=== PATIENT | female | born 1940 | race Caucasian/White ===

== ENCOUNTER 2017-04-08 19:16 | Emergency (ER) | payer MEDICARE, OTHER ==
[~2017-04-08] VITALS: Ht 160 cm; Wt 69.5 kg
[~2017-04-08 19:16] MED LIST: ALLOPURINOL100 MG PO; FOLIC ACID1 MG PO; MECLIZINE25 M1 PO; NOLVADEX20 MG PO; NORCO 325 MG-51 TAB PO; NORVASC 10MG10 MG PO; PERCOCET 325 MG1 TA2 PO; PREDNISONE1 MG PO; PRILOSEC 20MG20 MG PO; PRINIVIL5 MG; QUINAPRIL HCL40 MG PO; SULFAMETH/TRIME1 TA1 PO; ULTRAM 50MG TAB50 MG PO; ULTRAM50 MG PO; ZYLOPRIM300 MG PO
[2017-04-08 19:18] VITALS: TEMP 98.7
[2017-04-08 20:48] LABS: BASO % 0.6 % (0.0-2.0); EOS % 0.6 % (0-4.0); GRAN # 4.3 (1.4-6.5); GRAN % 59.9 % (42.2-75.2); LYMPH % 28.1 % (20.0-51.0); MEAN CELL VOLUME 80 fl (80.0-100.0); MEAN CORPUSCULAR HGB CONC 32 g/dl (33.0-37.0); MEAN PLATELET VOLUME 8.6 fl (7.4-10.4); MONO # 0.7 (0.1-0.6); MONO % 10.2 % (1.7-9.3); PLATELET COUNT 314 K/mm3 (130-400); RED BLOOD COUNT 3.86 M/mm3 (4.10-5.30); REDCELL DISTRIBUTION WIDTH-CV 15.3 % (11.5-14.5); WHITE BLOOD COUNT 7.2 K/mm3 (4.8-10.8)
[2017-04-08 20:49] LABS: HEMATOCRIT 30.7 % (37.0-47.0); HEMOGLOBIN 9.9 g/dl (12.5-16.0); MEAN CORPUSCULAR HEMOGLOBIN 26 pg (27.0-31.0)
[2017-04-08 21:06] LABS: ADJUSTED CALCIUM 9.6 mg/dL (8.4-10.2); ALANINE AMINOTRANSFERASE 22 U/L (9-52); ALBUMIN 3.7 gm/dL (3.5-5.0); ALKALINE PHOSPHATASE 75 U/L (50-136); ANION GAP 11 mmol/L (7-16); BILIRUBIN,TOTAL 0.9 mg/dL (0.0-1.0); BLOOD UREA NITROGEN 16 mg/dL (7-17); C-REACTIVE PROTEIN 0.8 mg/dL (0.0-0.9); CALCIUM 9.4 mg/dL (8.4-10.2); CARBON DIOXIDE 23 mmol/L (22-30); CHLORIDE 102 mmol/L (98-107); CREATININE, serum 1.35 mg/dL (0.52-1.25); GLUCOSE 122 mg/dL (74-106); MAGNESIUM 2.1 mg/dL (1.6-2.3); POTASSIUM 4.3 mmol/L (3.4-5.0); SODIUM 135 mmol/L (137-145); TOTAL PROTEIN 7.2 gm/dL (6.4-8.2)
[2017-04-08 21:23] LABS: TROPONIN-I < 0.012 ng/mL (0.000-0.034)
[2017-04-08] MEDS ORDERED: ZOFRAN 4MG T4 MG/TAB PO (22:16)
[2017-04-08] MEDS ORDERED: ATIVAN 0.50.5 MG/TAB PO (22:16)
[2017-04-08] MEDS ORDERED: AMOXICILLIN 50500 MG PO (22:16)
[2017-04-08] MEDS ORDERED: TOPROL XL 50MG50 MG PO (22:16)
[2017-04-08 23:00] VITALS: BP 157/88; PULSE 76
[2017-04-08 23:56] LABS: PH 6 (5-8); SQUAMOUS EPITHELIAL 0-2 /hpf; URINE APPEARANCE Clear; URINE BACTERIA None Seen /hpf; URINE BILIRUBIN Negative (NEGATIVE); URINE BLOOD Negative (NEGATIVE); URINE COLOR Yellow; URINE GLUCOSE Negative (NEGATIVE); URINE KETONE Negative (NEGATIVE); URINE UROBILINOGEN Negative (NEGATIVE); URINE WBC >50 /hpf
== END 2017-04-08 23:37 | disposition home or self-care (01) ==
LOC: COL.ER 19:16
PROVIDERS: Emergency Medicine
DX: R42 Dizziness and giddiness (principal); I10 Essential (primary) hypertension; J32.9 Chronic sinusitis, unspecified; Z85.3 Personal history of malignant neoplasm of breast; R11.2 Nausea with vomiting, unspecified
CPT/HCPCS: J2060; J2405; J7030

== ENCOUNTER → 2017-08-29 | Outpatient (CLI) | payer MEDICARE, OTHER ==
[~2017-08-29] MED LIST changes: +ALMACONE 360 M360 ML PO; +AMOXICILLIN 50500 MG PO; +AMOXICILLIN 8751 TAB PO; +ASPIRIN 81M81 MG/TA2 PO; +ATIVAN 0.50.5 MG/TAB PO; +BOOST PLUS 240240 ML PO; +CORDARONE200 MG/TAB PO; +IMODIUM 2MG CAPS2 MG PO; +MILK OF MA400 MG/52 PO; +SODIUM BICARBO650 MG PO; +TOPROL XL 50MG50 MG PO; +TYLENOL 325MG325 MG PO; -ULTRAM50 MG PO; +ZOFRAN 4MG T4 MG/TAB PO
== END ==
LOC: COL.RAD 08:33
DX: Z01.818 Encounter for other preprocedural examination (principal); K57.30 Diverticulosis of large intestine without perforation or abscess without bleeding; K57.80 Diverticulitis of intestine, part unspecified, with perforation and abscess without bleeding; Z93.2 Ileostomy status

== ENCOUNTER 2018-05-29 14:00 | Outpatient (RCR) | payer MEDICARE, OTHER, MEDICAID ==
[2018-05-20 14:22] VITALS: BP 134/63; PULSE 84; TEMP 98.1
[2018-05-23 13:15] VITALS: BP 130/62; PULSE 80; TEMP 98.4
[2018-05-26 13:15] VITALS: BP 132/61; PULSE 80; TEMP 97.5
[~2018-05-29] VITALS: Ht 160 cm; Wt 70.0 kg
[~2018-05-29 14:00] MED LIST changes: +NAPROSYN500 MG PO
[2018-05-29 14:31] VITALS: BP 120/59; PULSE 82; TEMP 98.6
== END 2018-05-29 17:30 | disposition home or self-care (01) ==
LOC: EUO 14:00
DX: D50.9 Iron deficiency anemia, unspecified (principal)
CPT/HCPCS: J2916

== ENCOUNTER 2018-06-16 06:45 | Day surgery (SDC) | payer MEDICARE, OTHER, MEDICAID ==
[~2018-06-16] VITALS: Ht 160 cm; Wt 67.8 kg
[~2018-06-16 06:45] MED LIST changes: -TYLENOL 325MG325 MG PO; +TYLENOL 8 HR PO
[2018-06-16] MEDS ORDERED: ANTIVERT 25MG25 MG PO (07:11)
[2018-06-16] MEDS ORDERED: PROTONIX 40MG T40 MG PO (09:01)
[2018-06-16 09:05] VITALS: BP 144/74; PULSE 89; TEMP 97.5
[2018-06-16 09:20] VITALS: BP 146/71; PULSE 79
[2018-06-16 09:35] VITALS: BP 146/76; PULSE 77
[2018-06-16 09:50] VITALS: BP 151/83; PULSE 73
[2018-06-16 10:05] VITALS: BP 145/87; PULSE 72
[2018-06-16 10:32] VITALS: BP 162/71; PULSE 78; TEMP 98.5
== END 2018-06-16 10:20 | disposition home or self-care (01) ==
LOC: SDCO 06:45
DX: K57.30 Diverticulosis of large intestine without perforation or abscess without bleeding (principal); K64.0 First degree hemorrhoids; K63.89 Other specified diseases of intestine; D50.9 Iron deficiency anemia, unspecified; R19.7 Diarrhea, unspecified; K21.0 Gastro-esophageal reflux disease with esophagitis; K44.9 Diaphragmatic hernia without obstruction or gangrene; K29.30 Chronic superficial gastritis without bleeding; M19.90 Unspecified osteoarthritis, unspecified site; I10 Essential (primary) hypertension; Z86.010 Personal history of colon polyps
CPT/HCPCS: OP; J2704; J7120

== ENCOUNTER 2021-04-04 17:55 | Emergency (ER) | payer MEDICARE, OTHER, MEDICAID ==
[~2021-04-04] VITALS: Ht 157.5 cm; Wt 50.0 kg
[~2021-04-04 17:55] MED LIST changes: +ANTIVERT 25MG25 MG PO; +PROTONIX 40MG T40 MG PO
[2021-04-04 18:02] VITALS: TEMP 98.2
[2021-04-04 18:22] LABS: HEMATOCRIT 39.4 % (37.0-47.0); HEMOGLOBIN 12.1 g/dl (12.5-16.0); MEAN CELL VOLUME 80 fl (80.0-100.0); MEAN CORPUSCULAR HEMOGLOBIN 25 pg (27.0-31.0); MEAN CORPUSCULAR HGB CONC 31 g/dl (33.0-37.0); MEAN PLATELET VOLUME 8.8 fl (7.4-10.4); PLATELET COUNT 473 K/mm3 (130-400); RED BLOOD COUNT 4.93 M/mm3 (4.10-5.30); REDCELL DISTRIBUTION WIDTH-CV 21.4 % (11.5-14.5)
[2021-04-04 18:38] LABS: MAGNESIUM 2.7 mg/dL (1.6-2.3)
[2021-04-04 18:49] LABS: LYMPHOCYTE 16 % (20.0-51.0); NEUTROPHILS 80 % (42.0-75.2)
[2021-04-04 18:50] LABS: ANISOCYTOSIS 2+; HYPOCHROMIA 3+; MICROCYTOSIS 1+
[2021-04-04 18:51] LABS: PLATELET ESTIMATE INCREASED (NORMAL); SCHISTOCYTES 1+; SPHEROCYTE 1+
[2021-04-04 18:52] LABS: ALBUMIN 3.4 gm/dL (3.5-5.0); CALCIUM 10.5 mg/dL (8.4-10.2); CREATININE, serum 2.15 (0.52-1.25); POTASSIUM 5.4 mmol/L (3.4-5.0); TOTAL PROTEIN 7.4 gm/dL (6.4-8.2)
[2021-04-04 18:54] LABS: COLLECTION METHOD CATHETER
[2021-04-04 19:03] LABS: TROPONIN-I 0.022 ng/mL (0.000-0.035)
[2021-04-04 19:06] LABS: PH 6 (5-8); SQUAMOUS EPITHELIAL None Seen /hpf; URINE APPEARANCE Turbid; URINE BACTERIA None Seen /hpf; URINE BILIRUBIN Negative (NEGATIVE); URINE BLOOD 3+ (NEGATIVE); URINE COLOR Red; URINE GLUCOSE Negative (NEGATIVE); URINE KETONE Trace (NEGATIVE); URINE LEUKOCYTE ESTERASE 2+ (NEGATIVE); URINE NITRATE Negative (NEGATIVE); URINE PROTEIN(semi-quant) 2+ (NEGATIVE); URINE RBC >50 /hpf; URINE UROBILINOGEN Negative (NEGATIVE)
[2021-04-04 19:21] LABS: TSH w REFLEX 0.647 uIU/mL (0.465-4.680)
[2021-04-04 22:50] VITALS: BP 117/88; PULSE 88
[2021-04-05 08:18] LABS: PATHOLOGY DIFF REVIEW OK
== END 2021-04-04 22:50 | disposition short-term general hospital (02) ==
LOC: COL.ER 17:55
PROVIDERS: Emergency Medicine
DX: I48.92 Unspecified atrial flutter (principal); N17.9 Acute kidney failure, unspecified; I10 Essential (primary) hypertension; Z20.822 Contact with and (suspected) exposure to COVID-19
CPT/HCPCS: J0282; J0692; J7030; J7060

== ENCOUNTER → 2021-04-17 | Outpatient (REF) ==
[2021-04-17 11:33] LABS: COLLECTION METHOD CLEAN CATCH
[2021-04-17 11:43] LABS: ALBUMIN 2.3 gm/dL (3.5-5.0); CALCIUM 8.5 mg/dL (8.4-10.2); CREATININE, serum 1.16 (0.52-1.25); POTASSIUM 4.4 mmol/L (3.4-5.0); TOTAL PROTEIN 5.1 gm/dL (6.4-8.2)
[2021-04-17 11:53] LABS: BASO % 0.6 % (0.0-2.0); EOS # 0.1 (0.0-0.7); EOS % 0.8 % (0-4.0); GRAN # 4.9 (1.4-6.5); GRAN % 67.7 % (42.2-75.2); HEMATOCRIT 24.1 % (37.0-47.0); HEMOGLOBIN 7.6 g/dl (12.5-16.0); LYMPH # 1.4 (1.2-3.4); LYMPH % 18.6 % (20.0-51.0); MEAN CELL VOLUME 82 fl (80.0-100.0); MEAN CORPUSCULAR HEMOGLOBIN 26 pg (27.0-31.0); MEAN CORPUSCULAR HGB CONC 32 g/dl (33.0-37.0); MONO # 0.9 (0.1-0.6); MONO % 11.7 % (1.7-9.3); PLATELET COUNT 313 K/mm3 (130-400); RED BLOOD COUNT 2.94 M/mm3 (4.10-5.30); REDCELL DISTRIBUTION WIDTH-CV 23.3 % (11.5-14.5)
[2021-04-17 12:04] LABS: PH 7 (5-8); URINE APPEARANCE Cloudy; URINE BACTERIA Occasional /hpf; URINE BILIRUBIN Negative (NEGATIVE); URINE BLOOD 1+ (NEGATIVE); URINE COLOR Yellow; URINE GLUCOSE Negative (NEGATIVE); URINE KETONE Negative (NEGATIVE); URINE LEUKOCYTE ESTERASE 3+ (NEGATIVE); URINE NITRATE Negative (NEGATIVE); URINE PROTEIN(semi-quant) 1+ (NEGATIVE); URINE RBC 20-50 /hpf; URINE UROBILINOGEN Negative (NEGATIVE)
[2021-04-17 19:38] LABS: IRON,SERUM < 10 ug/dL (35-150)
[2021-04-17 19:47] LABS: TOTAL IRON BINDING CAPACITY 214 ug/dL (265-497)
== END ==
LOC: ZCOL.LAB 11:32
PROVIDERS: Internal Medicine
DX: D50.8 Other iron deficiency anemias (principal)

== ENCOUNTER → 2022-02-06 | Outpatient (CLI) | payer MEDICARE, MEDICAID | LOC: ZCOL.LAB 15:07 | DX: R82.998 Other abnormal findings in urine (principal) ==

== ENCOUNTER → 2022-03-30 | Outpatient (CLI) | payer MEDICARE, MEDICAID | LOC: COL.RAD 13:00 | DX: M17.11 Unilateral primary osteoarthritis, right knee (principal); M11.261 Other chondrocalcinosis, right knee ==